=== PATIENT | male | born 1960 | race Caucasian/White ===

== ENCOUNTER 2017-08-11 22:57 | Emergency (ER) | payer MEDICAID, OTHER ==
[~2017-08-11] VITALS: Ht 177.8 cm; Wt 81.6 kg
--- NOTE | 2017-08-11 23:15 | NUR ---
PT AMBULATORY TO ER BED 9. PT BIBRA FROM B&C C/O DEPRESSION, DENIES SI/HI. PT PLACED ON DATA ENTRY COORDINATOR. VSS/RESP EVEN UNLABORED/NAD NOTED/AFEBRILE/SKIN WARM AND DRY/DENIES N-V-D/AOX4. AWAITING MD HONG.
--- NOTE | 2017-08-11 23:15 | NUR ---
LAB TO AT BEDSIDE TO DRAW.
[2017-08-11 23:31] LABS: BASOPHILS % (AUTO) 0.4 % (0.0-2.0); EOSINOPHILS # (AUTO) 0.1 /CMM (0.0-0.7); EOSINOPHILS % (AUTO) 0.9 % (0.0-6.0); HEMATOCRIT 35 % (39-51); HEMOGLOBIN 12.2 g/dL (13.5-17.5); LYMPHOCYTES # (AUTO) 1.1 /CMM (0.8-4.8); LYMPHOCYTES % (AUTO) 15.2 % (20.0-44.0); MEAN CORPUSCULAR HEMOGLOBIN 32 PG (26.0-33.0); MEAN CORPUSCULAR HGB CONC 35 g/dl (31.0-36.0); MEAN CORPUSCULAR VOLUME 91 fL (80-96); MONOCYTES # (AUTO) 0.6 /CMM (0.1-1.30); MONOCYTES % (AUTO) 8.2 % (2.0-12.0); NEUTROPHILS # (AUTO) 5.3 /CMM (1.8-8.9); NEUTROPHILS % (AUTO) 75.3 % (43.0-81.0); PLATELET COUNT (AUTO) 189 /CMM (150-450); RDW COEFFICIENT OF VARIATION 13.7 (11.5-15.0); RED BLOOD CELL COUNT(AUTO) 3.88 MIL/uL (4.5-6.0); WHITE BLOOD COUNT (AUTO) 7.1 K/uL (4.3-11.0)
[2017-08-11 23:33] LABS: APPEARANCE,URINE CLEAR (CLEAR); BILIRUBIN,URINE NEGATIVE (NEGATIVE); BLOOD, URINE NEGATIVE Ery/uL (NEGATIVE); COLOR,URINE YELLOW (YELLOW); KETONES,URINE NEGATIVE (NEGATIVE); LEUKOCYTE ESTERASE ,URINE NEGATIVE (NEGATIVE); NITRITE, URINE NEGATIVE (NEGATIVE); PH,URINE 5.5 (5.0-8.0); PROTEIN,URINE NEGATIVE (NEGATIVE); UGLUCOSE NEGATIVE (NEGATIVE); UROBILINOGEN,URINE 0.2 EU/dL (0.2)
--- NOTE | 2017-08-11 23:47 | NUR ---
URINE OBTAINED EARLIER AND SENT TO THE LAB.
[2017-08-11 23:49] LABS: CALCIUM, SERUM 9.8 mg/dL (8.5-10.1); CARBON DIOXIDE 22 mmol/L (21-32); CHLORIDE 111 mmol/L (98-107); CREATININE 2.3 mg/dL (0.6-1.3); GLUCOSE 114 mg/dL (74-106); POTASSIUM 5.1 mmol/L (3.5-5.1); SODIUM SERUM 143 mmol/L (136-145); UREA NITROGEN, BLOOD 61 mg/dL (7-18)
[2017-08-11 23:54] LABS: ALANINE AMINOTRANSFERASE 36 U/L (12-78); ALBUMIN 3.5 g/dL (3.4-5.0); ALCOHOL, BLOOD < 3 mg/dL (0-0); ALKALINE PHOSPHATASE 64 U/L (46-116); ASPARTATE AMINOTRANSFERASE 15 U/L (15-37); BILIRUBIN,DIRECT 0.1 mg/dL (0.0-0.2); BILIRUBIN,TOTAL 0.2 mg/dL (0.2-1.0); TOTAL PROTEIN, SERUM 6.3 g/dL (6.4-8.2)
[2017-08-12 00:02] LABS: ACETAMINOPHEN 0 ug/ml (10-30)
--- NOTE | 2017-08-12 01:31 | NUR ---
PT AWAKE AND ALERT, AWAITING DELIVERY STOCK CLERK.
--- NOTE | 2017-08-12 02:09 | NUR ---
ART AT BEDSIDE FOR EVAL
[2017-08-12 02:30] VITALS: BP 141/79
--- NOTE | 2017-08-12 02:31 | NUR ---
Patient discharged to caregiver for transport home in stable condition. Written and verbal after care instructions given. Patient verbalizes understanding of instruction. VSS, NAD noted on DC. Denies complaint on DC. Taken to car by w/c and asissted into caregiver's car.
== END 2017-08-12 02:34 | disposition home or self-care (01) ==
LOC: ER 22:58
DX: F32.9 Major depressive disorder, single episode, unspecified (principal); E11.9 Type 2 diabetes mellitus without complications; F03.90 Unspecified dementia, unspecified severity, without behavioral disturbance, psychotic disturbance, mood disturbance, and anxiety
CPT/HCPCS: 36415; 80048; 80076; 80305; 80329; 81001; 82962; 85025; 99284; A4606; G0480 ×2; Z7610; 81000-TC